=== PATIENT | female | born 1945 | race Caucasian/White ===

== ENCOUNTER 2016-09-18 16:41 | Emergency (ER) | payer MEDICARE, OTHER ==
[~2016-09-18] VITALS: Ht 149.9 cm; Wt 90.9 kg
[~2016-09-18 16:41] MED LIST: ADV250 IH; ALBU8HFA IH; AMLO5TAB66 PO; ASPI-1093 PO; CHOL2000 PO; DOCU250C28 PO; GABA-531 PO; INSU100V12 SQ; LORA-192 PO; METO-325 PO; MONT10TA21 PO; OMEP20CA10 PO; OXYB5TAB10 PO; PITA4TAB2 PO; SITA1TAB2 PO; SYMB8060 IH; VALS1TAB8 PO
[2016-09-18 16:57] LABS: GLUCOSE,POINT OF CARE 116 MG/DL (70-110)
[2016-09-18] MEDS ORDERED: METF500T4 PO (16:58)
[2016-09-18] MEDS ORDERED: NAPR375T6 PO (16:58)
[2016-09-18] MEDS ORDERED: NITR.4 SL (16:58)
[2016-09-18] MEDS ORDERED: ALBU8HFA4 IH (16:58)
[2016-09-18] MEDS ORDERED: PRAV40 PO (16:58)
[2016-09-18] MEDS ORDERED: SITA100 PO (16:58)
[2016-09-18] MEDS ORDERED: KETOROLAC TROMETHAMINE 30 MG/ML VIAL IM ONE (18:30)
[2016-09-18 19:30] VITALS: BP 132/78
== END 2016-09-18 20:00 | disposition home or self-care (01) ==
LOC: EMS 16:43
DX: M54.6 Pain in thoracic spine (principal); J45.909 Unspecified asthma, uncomplicated; J44.9 Chronic obstructive pulmonary disease, unspecified; E11.9 Type 2 diabetes mellitus without complications; K21.9 Gastro-esophageal reflux disease without esophagitis; I10 Essential (primary) hypertension; E78.00 Pure hypercholesterolemia, unspecified; F17.210 Nicotine dependence, cigarettes, uncomplicated; Z79.82 Long term (current) use of aspirin
CPT/HCPCS: 72072; 82962; 96372; 99284; J1885

== ENCOUNTER 2016-10-25 10:46 | Emergency (ER) | payer MEDICARE, OTHER ==
[~2016-10-25] VITALS: Ht 152.4 cm; Wt 90.0 kg
[~2016-10-25 10:46] MED LIST changes: +ALBU8HFA4 IH; +METF500T4 PO; +NAPR375T6 PO; +NITR.4 SL; +PRAV40 PO; +SITA100 PO
[2016-10-25] MEDS ORDERED: IBUPROFEN 600 MG TABLET PO ONE (11:00)
[2016-10-25 12:21] VITALS: BP 145/77
== END 2016-10-25 12:27 | disposition home or self-care (01) ==
LOC: EMS 10:47
DX: S83.92XA Sprain of unspecified site of left knee, initial encounter (principal); E11.9 Type 2 diabetes mellitus without complications; J44.9 Chronic obstructive pulmonary disease, unspecified; K21.9 Gastro-esophageal reflux disease without esophagitis; E78.00 Pure hypercholesterolemia, unspecified; I10 Essential (primary) hypertension; Z87.891 Personal history of nicotine dependence; Z79.82 Long term (current) use of aspirin; Z79.4 Long term (current) use of insulin; X58.XXXA Exposure to other specified factors, initial encounter; Y93.01 Activity, walking, marching and hiking; Y92.89 Other specified places as the place of occurrence of the external cause; Y99.8 Other external cause status
CPT/HCPCS: 82962; 99284

== ENCOUNTER 2017-05-07 21:25 | Emergency (ER) | payer MEDICARE, OTHER ==
[~2017-05-07] VITALS: Ht 165.1 cm; Wt 81.8 kg
[~2017-05-07 21:25] MED LIST changes: -ASPI-1093 PO; +ASPI81TA43 PO; -METO-325 PO; +METO-391 PO; -PRAV40 PO; +PRAV40TA4 PO; -SITA1TAB2 PO
[2017-05-07] MEDS ORDERED: OXYB5 PO (21:32)
[2017-05-07] MEDS ORDERED: GABA-531 PO (21:32)
[2017-05-07] MEDS ORDERED: METO50 PO (21:32)
[2017-05-07 21:59] LABS: BASOPHILS % (AUTO) 0.6 % (0.0-2.0); EOSINOPHILS % (AUTO) 2.4 % (1.0-6.0); HEMATOCRIT 41.3 % (36-46); HEMOGLOBIN 13.9 g/dL (12.0-16.0); LYMPHOCYTES # (AUTO) 3.3 K/uL (1.0-4.8); LYMPHOCYTES % (AUTO) 36.4 % (22.0-44.0); MEAN CORPUSCULAR HEMOGLOBIN 28.9 pg (26.0-34.0); MEAN CORPUSCULAR HGB CONC 33.7 G/dL (31.0-37.0); MEAN CORPUSCULAR VOLUME 86 fL (80-100); MONOCYTES # (AUTO) 0.8 K/uL (0.1-1.0); MONOCYTES % (AUTO) 9.1 % (2.0-9.0); NEUTROPHILS # (AUTO) 4.7 K/uL (1.8-7.7); NEUTROPHILS % (AUTO) 51.5 % (40.0-70.0); PLATELET COUNT (AUTO) 370 K/uL (150-450); RED BLOOD CELL COUNT(AUTO) 4.81 MIL/uL (4.00-5.20); RED CELL DISTRIBUTION WIDTH 14.1 % (11.5-14.5)
[2017-05-07 22:16] LABS: ANION GAP 8 mmol/L (8-16); CALCIUM, TOTAL 8.9 mg/dL (8.8-10.5); CARBON DIOXIDE 32 mmol/L (22-29); CHLORIDE 99 mmol/L (98-107); CREATININE 0.69 mg/dL (0.60-1.30); GLOMERULAR FILTR. RATE CALC > 60 mL/min (>60); GLUCOSE,RANDOM 104 mg/dL (70-110); POTASSIUM 3.4 mmol/L (3.5-5.1); PROTHROMBIN TIME 10.8 SEC (9.4-11.6); SODIUM SERUM 139 mmol/L (136-145); UREA NITROGEN, BLOOD 12 mg/dL (7-18)
[2017-05-07 22:22] LABS: ALANINE AMINOTRANSFERASE 43 U/L (12-78); ALBUMIN 3.7 g/dL (3.4-5.0); ALKALINE PHOSPHATASE 76 U/L (46-116); ASPARTATE AMINOTRANSFERASE 26 U/L (15-37); BILIRUBIN,TOTAL 0.4 mg/dL (0.1-1.0); TOTAL PROTEIN, SERUM 8.6 g/dL (6.4-8.2)
[2017-05-07 22:50] VITALS: BP 126/72
== END 2017-05-07 23:30 | disposition home or self-care (01) ==
LOC: EMS 21:35
DX: R07.89 Other chest pain (principal); J45.909 Unspecified asthma, uncomplicated; J44.9 Chronic obstructive pulmonary disease, unspecified; E11.9 Type 2 diabetes mellitus without complications; K21.9 Gastro-esophageal reflux disease without esophagitis; E78.00 Pure hypercholesterolemia, unspecified; I10 Essential (primary) hypertension; Z87.891 Personal history of nicotine dependence; Z79.82 Long term (current) use of aspirin
CPT/HCPCS: 93005; 99285

== ENCOUNTER 2017-06-27 14:03 | Emergency (ER) | payer MEDICARE, OTHER ==
[~2017-06-27] VITALS: Ht 149.9 cm; Wt 86.8 kg
[~2017-06-27 14:03] MED LIST changes: -ADV250 IH; -ALBU8HFA4 IH; -CHOL2000 PO; -DOCU250C28 PO; -INSU100V12 SQ; -LORA-192 PO; -METO-391 PO; +METO50 PO; +OXYB5 PO; -OXYB5TAB10 PO; -PITA4TAB2 PO; -SYMB8060 IH
[2017-06-27 14:27] LABS: GLUCOSE,POINT OF CARE 162 MG/DL (70-110)
[2017-06-27] MEDS ORDERED: KETOROLAC TROMETHAMINE 30 MG/ML VIAL IM ONE (15:45)
[2017-06-27 17:00] VITALS: BP 149/81
== END 2017-06-27 17:41 | disposition home or self-care (01) ==
LOC: EMS 14:04
DX: S39.012A Strain of muscle, fascia and tendon of lower back, initial encounter (principal); K21.9 Gastro-esophageal reflux disease without esophagitis; I10 Essential (primary) hypertension; E78.00 Pure hypercholesterolemia, unspecified; E11.9 Type 2 diabetes mellitus without complications; J44.9 Chronic obstructive pulmonary disease, unspecified; Z79.82 Long term (current) use of aspirin; Z87.891 Personal history of nicotine dependence; W01.0XXA Fall on same level from slipping, tripping and stumbling without subsequent striking against object, initial encounter; Y93.01 Activity, walking, marching and hiking; Y92.480 Sidewalk as the place of occurrence of the external cause; Y99.8 Other external cause status
CPT/HCPCS: 72110; 82962; 96372; 99284; J1885

== ENCOUNTER 2017-07-26 09:28 | Emergency (ER) | payer MEDICARE, OTHER ==
[~2017-07-26] VITALS: Ht 149.9 cm; Wt 86.2 kg
[2017-07-26 09:52] LABS: GLUCOSE,POINT OF CARE 111 MG/DL (70-110)
[2017-07-26 10:49] LABS: BASOPHILS % (AUTO) 0.5 % (0.0-2.0); EOSINOPHILS % (AUTO) 0.3 % (1.0-6.0); HEMATOCRIT 40.4 % (36-46); HEMOGLOBIN 13.6 g/dL (12.0-16.0); LYMPHOCYTES # (AUTO) 1.9 K/uL (1.0-4.8); LYMPHOCYTES % (AUTO) 13.8 % (22.0-44.0); MEAN CORPUSCULAR HEMOGLOBIN 28.5 pg (26.0-34.0); MEAN CORPUSCULAR HGB CONC 33.7 G/dL (31.0-37.0); MEAN CORPUSCULAR VOLUME 85 fL (80-100); MONOCYTES # (AUTO) 1.1 K/uL (0.1-1.0); MONOCYTES % (AUTO) 8.1 % (2.0-9.0); NEUTROPHILS # (AUTO) 10.7 K/uL (1.8-7.7); NEUTROPHILS % (AUTO) 77.3 % (40.0-70.0); PLATELET COUNT (AUTO) 307 K/uL (150-450); RED BLOOD CELL COUNT(AUTO) 4.77 MIL/uL (4.00-5.20); RED CELL DISTRIBUTION WIDTH 13.5 % (11.5-14.5)
[2017-07-26 11:06] LABS: ANION GAP 8 mmol/L (8-16); CALCIUM, TOTAL 8.6 mg/dL (8.8-10.5); CARBON DIOXIDE 32 mmol/L (22-29); CHLORIDE 95 mmol/L (98-107); CREATININE 0.83 mg/dL (0.60-1.30); GLOMERULAR FILTR. RATE CALC > 60 mL/min (>60); GLUCOSE,RANDOM 111 mg/dL (70-110); POTASSIUM 3.3 mmol/L (3.5-5.1); SODIUM SERUM 135 mmol/L (136-145); UREA NITROGEN, BLOOD 12 mg/dL (7-18)
[2017-07-26 11:12] LABS: ALANINE AMINOTRANSFERASE 31 U/L (12-78); ALBUMIN 3.6 g/dL (3.4-5.0); ALKALINE PHOSPHATASE 65 U/L (46-116); ASPARTATE AMINOTRANSFERASE 22 U/L (15-37); BILIRUBIN,TOTAL 0.5 mg/dL (0.1-1.0); TOTAL PROTEIN, SERUM 8.3 g/dL (6.4-8.2)
[2017-07-26] MEDS ORDERED: IPRATROPIUM BROMIDE 0.5 MG/2.5 ML NEB SOLUTION NEB ONE (11:15)
[2017-07-26] MEDS ORDERED: ALBUTEROL SULFATE 2.5 MG/0.5 ML NEB SOLUTION NEB ONE (11:15)
[2017-07-26] MEDS ORDERED: PredniSONE 20 MG TABLET PO ONE (11:15)
[2017-07-26] MEDS ORDERED: AZITHROMYCIN 250 MG TABLET PO ONE (11:15)
[2017-07-26 11:24] LABS: B-TYPE NATRIURETIC PEPTIDE 11 pg/mL (0-100)
[2017-07-26 13:09] VITALS: BP 127/82
== END 2017-07-26 13:14 | disposition home or self-care (01) ==
LOC: EMS 09:30
DX: J44.9 Chronic obstructive pulmonary disease, unspecified (principal); J45.901 Unspecified asthma with (acute) exacerbation; E11.9 Type 2 diabetes mellitus without complications; E78.00 Pure hypercholesterolemia, unspecified; I10 Essential (primary) hypertension; K21.9 Gastro-esophageal reflux disease without esophagitis; Z79.82 Long term (current) use of aspirin; Z87.891 Personal history of nicotine dependence
CPT/HCPCS: 36415; 71046; 80053; 82962; 83880; 84484; 85025; 93005; 94640; 99285; J7512

== ENCOUNTER → 2017-08-24 | Outpatient (CLI) | payer MEDICARE, OTHER ==
[~2017-08-24] VITALS: Ht 149.9 cm; Wt 86.5 kg
[~2017-08-24] MED LIST changes: +ALBU8.5H8 IH; +GUAIFDM PO; -METF500T4 PO; +METF500T6 PO; +[UNRECOGNIZED DRUG - CODE] PO
[2017-08-24 12:13] VITALS: BP 120/54
== END | disposition home or self-care (01) ==
LOC: SRCNTR 12:06
PROVIDERS: ATTEND Internal Medicine Critical Care Medicine
DX: J44.1 Chronic obstructive pulmonary disease with (acute) exacerbation (principal); E11.9 Type 2 diabetes mellitus without complications; I10 Essential (primary) hypertension; E78.5 Hyperlipidemia, unspecified
CPT/HCPCS: G0463

== ENCOUNTER → 2017-09-08 | Outpatient (CLI) | payer MEDICARE, OTHER ==
[~2017-09-08] MED LIST changes: -NAPR375T6 PO
== END | disposition home or self-care (01) ==
LOC: MSR 11:36
PROVIDERS: ATTEND Internal Medicine Critical Care Medicine
DX: J84.112 Idiopathic pulmonary fibrosis (principal); I70.90 Unspecified atherosclerosis
CPT/HCPCS: 71250; 94010; 94726; 94727; 94729

== ENCOUNTER → 2017-11-27 | Outpatient (CLI) | payer MEDICARE, OTHER ==
[~2017-11-27] VITALS: Ht 147.3 cm; Wt 85.5 kg
[2017-11-27 09:49] VITALS: BP 110/65
== END | disposition home or self-care (01) ==
LOC: SRCNTR 09:47
PROVIDERS: ATTEND Internal Medicine Cardiovascular Disease
DX: I11.9 Hypertensive heart disease without heart failure (principal); E11.9 Type 2 diabetes mellitus without complications; E66.01 Morbid (severe) obesity due to excess calories; E78.2 Mixed hyperlipidemia; E78.00 Pure hypercholesterolemia, unspecified; J44.1 Chronic obstructive pulmonary disease with (acute) exacerbation; F17.210 Nicotine dependence, cigarettes, uncomplicated; K21.9 Gastro-esophageal reflux disease without esophagitis
CPT/HCPCS: G0463

== ENCOUNTER → 2018-02-04 | Outpatient (CLI) | payer MEDICARE, OTHER ==
[~2018-02-04] VITALS: Ht 147.3 cm; Wt 83.2 kg
[~2018-02-04] MED LIST changes: +CHLO25TA3 PO; +IRBE150T51 PO; +METF-960 PO; -METF500T6 PO
[2018-02-04 11:42] VITALS: BP 126/64
== END | disposition home or self-care (01) ==
LOC: SRCNTR 11:14
PROVIDERS: ATTEND Internal Medicine Cardiovascular Disease
DX: I11.9 Hypertensive heart disease without heart failure (principal); E11.9 Type 2 diabetes mellitus without complications; E78.5 Hyperlipidemia, unspecified; E66.9 Obesity, unspecified; J98.4 Other disorders of lung
CPT/HCPCS: G0463

== ENCOUNTER → 2018-02-12 | Outpatient (CLI) | payer MEDICARE, OTHER ==
[~2018-02-12] VITALS: Ht 147.3 cm; Wt 83.2 kg
[2018-02-12 09:43] VITALS: BP 111/62
== END | disposition home or self-care (01) ==
LOC: SRCNTR 09:15
PROVIDERS: ATTEND Internal Medicine Cardiovascular Disease
DX: I49.9 Cardiac arrhythmia, unspecified (principal)
CPT/HCPCS: G0463

== ENCOUNTER → 2018-06-02 | Outpatient (CLI) | payer MEDICARE, OTHER ==
[~2018-06-02] VITALS: Ht 147.3 cm; Wt 84.5 kg
[~2018-06-02] MED LIST changes: +GABA800T9 PO; -VALS1TAB8 PO; +[UNRECOGNIZED DRUG - CODE] PO; -[UNRECOGNIZED DRUG - CODE] PO
[2018-06-02 10:14] VITALS: BP 131/56
== END | disposition home or self-care (01) ==
LOC: SRCNTR 09:50
PROVIDERS: ATTEND Internal Medicine Cardiovascular Disease
DX: I25.10 Atherosclerotic heart disease of native coronary artery without angina pectoris (principal); E11.9 Type 2 diabetes mellitus without complications; E78.5 Hyperlipidemia, unspecified; M19.90 Unspecified osteoarthritis, unspecified site; J44.9 Chronic obstructive pulmonary disease, unspecified
CPT/HCPCS: G0463

== ENCOUNTER → 2018-06-17 | Outpatient (CLI) | payer MEDICARE, OTHER ==
[~2018-06-17] MED LIST changes: -ALBU8.5H8 IH; -CHLO25TA3 PO; -GABA-531 PO; -GUAIFDM PO; -SITA100 PO
== END | disposition home or self-care (01) ==
LOC: RADPV 09:24
PROVIDERS: ATTEND Internal Medicine Cardiovascular Disease
DX: I08.1 Rheumatic disorders of both mitral and tricuspid valves (principal); I11.9 Hypertensive heart disease without heart failure; E11.9 Type 2 diabetes mellitus without complications; I25.10 Atherosclerotic heart disease of native coronary artery without angina pectoris
CPT/HCPCS: 93306

== ENCOUNTER → 2018-08-02 | Outpatient (CLI) | payer MEDICARE, OTHER ==
[~2018-08-02] VITALS: Ht 147.3 cm; Wt 83.0 kg
[~2018-08-02] MED LIST changes: +BECL10.62 IH; +LOSA100T58 PO
[2018-08-02 10:07] VITALS: BP 143/68
== END | disposition home or self-care (01) ==
LOC: SRCNTR 09:56
PROVIDERS: ATTEND Internal Medicine Cardiovascular Disease
DX: E11.9 Type 2 diabetes mellitus without complications (principal); I10 Essential (primary) hypertension; E78.5 Hyperlipidemia, unspecified; M19.90 Unspecified osteoarthritis, unspecified site; J45.909 Unspecified asthma, uncomplicated
CPT/HCPCS: G0463

== ENCOUNTER 2019-04-13 15:57 | Emergency (ER) | payer MEDICARE, OTHER ==
[~2019-04-13] VITALS: Ht 149.9 cm; Wt 86.0 kg
[~2019-04-13 15:57] MED LIST changes: +ACET500T94 PO; -IRBE150T51 PO; -NITR.4 SL; +NITR0.4T52 SL; -OMEP20CA10 PO; +OMEP20CA12 PO; -[UNRECOGNIZED DRUG - CODE] PO
[2019-04-13] MEDS ORDERED: LIDOCAINE 5% TRANSDERMAL PATCH TD ONE (18:00)
[2019-04-13] MEDS ORDERED: IBUPROFEN 400 MG TABLET PO ONE (18:00)
[2019-04-13 18:31] LABS: GLUCOSE,POINT OF CARE 95 MG/DL (70-110)
[2019-04-13 18:40] VITALS: BP 155/87
== END 2019-04-13 19:02 | disposition home or self-care (01) ==
LOC: EMS 16:02
DX: S39.012A Strain of muscle, fascia and tendon of lower back, initial encounter (principal); F17.210 Nicotine dependence, cigarettes, uncomplicated; J45.909 Unspecified asthma, uncomplicated; E11.9 Type 2 diabetes mellitus without complications; K21.9 Gastro-esophageal reflux disease without esophagitis; E78.00 Pure hypercholesterolemia, unspecified; I10 Essential (primary) hypertension; Z79.84 Long term (current) use of oral hypoglycemic drugs; X58.XXXA Exposure to other specified factors, initial encounter; Y93.89 Activity, other specified; Y92.89 Other specified places as the place of occurrence of the external cause; Y99.8 Other external cause status
CPT/HCPCS: 99406

== ENCOUNTER 2020-04-24 17:49 | Emergency (ER) | payer MEDICARE, OTHER ==
[~2020-04-24] VITALS: Ht 154.9 cm; Wt 75.0 kg
[~2020-04-24 17:49] MED LIST changes: +MONT-35 PO; -MONT10TA21 PO
[2020-04-24 19:45] VITALS: BP 172/98
[2020-04-24 20:35] LABS: COVID AG,FIA SOURCE NASOPHARYNGEAL
== END 2020-04-24 20:22 | disposition home or self-care (01) ==
LOC: EMS 17:56
DX: R05 Cough (principal); J44.9 Chronic obstructive pulmonary disease, unspecified; E11.9 Type 2 diabetes mellitus without complications; E78.00 Pure hypercholesterolemia, unspecified; I10 Essential (primary) hypertension; Z20.828 Contact with and (suspected) exposure to other viral communicable diseases; Z79.899 Other long term (current) drug therapy
CPT/HCPCS: 71045; 87426; 99284; C9803

== ENCOUNTER → 2020-07-23 | Outpatient (CLI) | payer MEDICARE, OTHER ==
[~2020-07-23] VITALS: Ht 147.3 cm; Wt 84.4 kg
[2020-07-23 10:35] VITALS: BP 122/61
== END | disposition home or self-care (01) ==
LOC: SRCNTR 10:04
PROVIDERS: ATTEND Internal Medicine Cardiovascular Disease
DX: I10 Essential (primary) hypertension (principal); E11.9 Type 2 diabetes mellitus without complications; E78.5 Hyperlipidemia, unspecified; J44.9 Chronic obstructive pulmonary disease, unspecified; M19.90 Unspecified osteoarthritis, unspecified site; R07.89 Other chest pain
CPT/HCPCS: 93005; G0463

== ENCOUNTER → 2020-07-25 | Outpatient (CLI) | payer MEDICARE, OTHER ==
[2020-07-25 10:40] LABS: BASOPHILS % (AUTO) 0.8 % (0.0-2.0); HEMATOCRIT 41.5 % (36-46); HEMOGLOBIN 13.8 g/dL (12.0-16.0); LYMPHOCYTES # (AUTO) 2.2 K/uL (1.0-4.8); LYMPHOCYTES % (AUTO) 40.1 % (22.0-44.0); MEAN CORPUSCULAR HGB CONC 33.3 G/dL (31.0-37.0); MEAN CORPUSCULAR VOLUME 90 fL (80-100); MONOCYTES # (AUTO) 0.5 K/uL (0.1-1.0); MONOCYTES % (AUTO) 8.8 % (2.0-9.0); NEUTROPHILS # (AUTO) 2.5 K/uL (1.8-7.7); NEUTROPHILS % (AUTO) 46.3 % (40.0-70.0); PLATELET COUNT (AUTO) 265 K/uL (150-450)
[2020-07-25 10:52] LABS: ALANINE AMINOTRANSFERASE 22 U/L (12-78); ALBUMIN 3.6 g/dL (3.4-5.0); ALKALINE PHOSPHATASE 68 U/L (46-116); ANION GAP 9 mmol/L (8-16); ASPARTATE AMINOTRANSFERASE 16 U/L (15-37); BILIRUBIN,TOTAL 0.3 mg/dL (0.1-1.0); CALCIUM, TOTAL 8.8 mg/dL (8.8-10.5); CARBON DIOXIDE 30 mmol/L (22-29); CHLORIDE 104 mmol/L (98-107); CHOL/HDL RATIO 3.3 (3.9-5.7); CHOLESTEROL 159 mg/dL (131-200); CREATININE 0.58 mg/dL (0.60-1.30); GLOMERULAR FILTR. RATE CALC > 60 mL/min (>60); GLUCOSE,RANDOM 111 mg/dL (70-110); HDL CHOLESTEROL 48 mg/dL (40-60); LDL CHOL (CALC.) 84 mg/dL (0-130); POTASSIUM 4.1 mmol/L (3.5-5.1); SODIUM SERUM 143 mmol/L (136-145); TOTAL PROTEIN, SERUM 7.8 g/dL (6.4-8.2); TRIGLYCERIDES 133 mg/dL (15-150); UREA NITROGEN, BLOOD 11 mg/dL (7-18)
[2020-07-25 10:59] LABS: HEMOGLOBIN A1C 6.3 % (3.8-5.6)
== END | disposition home or self-care (01) ==
LOC: LABPV 09:17
PROVIDERS: ATTEND Internal Medicine Cardiovascular Disease
DX: I25.10 Atherosclerotic heart disease of native coronary artery without angina pectoris (principal); I10 Essential (primary) hypertension; E11.9 Type 2 diabetes mellitus without complications
CPT/HCPCS: 83036

== ENCOUNTER → 2020-07-31 | Outpatient (CLI) | payer MEDICARE, OTHER ==
[~2020-07-31] MED LIST changes: +REGADENOSON 0.4 MG/5 ML PF SYRINGE IVP ONE; +SESTAMIBI TC99M/UD ISOTOPE 1 EA INJ INJ ONE
[2020-07-31 08:35] VITALS: BP 138/76
[2020-07-31 09:27] VITALS: BP 129/68
== END | disposition home or self-care (01) ==
LOC: CARDMN 08:17
PROVIDERS: ATTEND Internal Medicine Cardiovascular Disease
DX: I50.1 Left ventricular failure, unspecified (principal); I20.9 Angina pectoris, unspecified
CPT/HCPCS: 78452; 93017; 93306; A9500

== ENCOUNTER → 2020-08-06 | Outpatient (CLI) | payer MEDICARE, OTHER ==
[~2020-08-06] VITALS: Ht 147.3 cm; Wt 84.5 kg
[~2020-08-06] MED LIST changes: -REGADENOSON 0.4 MG/5 ML PF SYRINGE IVP ONE; -SESTAMIBI TC99M/UD ISOTOPE 1 EA INJ INJ ONE
[2020-08-06 09:53] VITALS: BP 121/57
== END | disposition home or self-care (01) ==
LOC: SRCNTR 09:27
PROVIDERS: ATTEND Internal Medicine Cardiovascular Disease
DX: I10 Essential (primary) hypertension (principal); E11.9 Type 2 diabetes mellitus without complications; E78.5 Hyperlipidemia, unspecified; M19.90 Unspecified osteoarthritis, unspecified site; J44.9 Chronic obstructive pulmonary disease, unspecified
CPT/HCPCS: G0463

== ENCOUNTER 2020-11-14 14:41 | Emergency (ER) | payer MEDICARE, OTHER ==
[~2020-11-14] VITALS: Ht 152.4 cm; Wt 79.5 kg
[~2020-11-14 14:41] MED LIST changes: +TICA90TA PO
[2020-11-14] MEDS ORDERED: PERTUSS(ACELL),DIPH,TET VAC/PF 0.5 ML SYRINGE IM. ONE (15:00)
[2020-11-14] MEDS ORDERED: ACETAMINOPHEN 500 MG TABLET PO ONE (15:00)
[2020-11-14 18:00] VITALS: BP 140/77
== END 2020-11-14 19:44 | disposition home or self-care (01) ==
LOC: EMS 15:01
DX: S01.01XA Laceration without foreign body of scalp, initial encounter (principal); J45.909 Unspecified asthma, uncomplicated; J44.9 Chronic obstructive pulmonary disease, unspecified; E11.9 Type 2 diabetes mellitus without complications; K21.9 Gastro-esophageal reflux disease without esophagitis; E78.00 Pure hypercholesterolemia, unspecified; I10 Essential (primary) hypertension; F17.210 Nicotine dependence, cigarettes, uncomplicated; Z79.82 Long term (current) use of aspirin; Z79.84 Long term (current) use of oral hypoglycemic drugs; W22.8XXA Striking against or struck by other objects, initial encounter; Y93.89 Activity, other specified; Y92.89 Other specified places as the place of occurrence of the external cause; Y99.8 Other external cause status
CPT/HCPCS: 12001; 70450; 90471; 90715; 99284

== ENCOUNTER 2020-11-21 07:14 | Emergency (ER) | payer MEDICARE, OTHER ==
[~2020-11-21] VITALS: Ht 160 cm; Wt 79.5 kg
[2020-11-21 07:20] VITALS: BP 159/68
== END 2020-11-21 07:17 | disposition home or self-care (01) ==
LOC: EMS 07:16
DX: M25.552 Pain in left hip (principal); G89.29 Other chronic pain; J45.909 Unspecified asthma, uncomplicated; E11.9 Type 2 diabetes mellitus without complications; K21.9 Gastro-esophageal reflux disease without esophagitis; E78.00 Pure hypercholesterolemia, unspecified; I10 Essential (primary) hypertension; F17.210 Nicotine dependence, cigarettes, uncomplicated; Z48.02 Encounter for removal of sutures; Z79.82 Long term (current) use of aspirin; Z79.84 Long term (current) use of oral hypoglycemic drugs
CPT/HCPCS: 99281; Z7502

== ENCOUNTER → 2020-12-28 | Outpatient (CLI) | payer MEDICARE, OTHER ==
[~2020-12-28] VITALS: Ht 147.3 cm; Wt 82.7 kg
[~2020-12-28] MED LIST changes: -OXYB5 PO; +OXYB5TAB20 PO
[2020-12-28 10:08] VITALS: BP 128/67
== END | disposition home or self-care (01) ==
LOC: SRCNTR 09:59
PROVIDERS: ATTEND Internal Medicine Cardiovascular Disease
DX: I10 Essential (primary) hypertension (principal); E11.9 Type 2 diabetes mellitus without complications; J44.9 Chronic obstructive pulmonary disease, unspecified; I25.10 Atherosclerotic heart disease of native coronary artery without angina pectoris; E78.5 Hyperlipidemia, unspecified; M19.90 Unspecified osteoarthritis, unspecified site; E66.9 Obesity, unspecified; Z95.5 Presence of coronary angioplasty implant and graft
CPT/HCPCS: G0463; Z7500

== ENCOUNTER → 2021-06-04 | Outpatient (CLI) | payer MEDICARE, OTHER ==
[~2021-06-04] MED LIST changes: +METF-1211 PO; -METF-960 PO
== END | disposition home or self-care (01) ==
LOC: LABMN 09:38
PROVIDERS: ATTEND Internal Medicine
DX: R05.9 Cough, unspecified (principal); I70.0 Atherosclerosis of aorta; M51.34 Other intervertebral disc degeneration, thoracic region
CPT/HCPCS: 71046

== ENCOUNTER → 2021-06-17 | Outpatient (CLI) | payer MEDICARE, OTHER ==
[~2021-06-17] VITALS: Ht 147.3 cm; Wt 81.8 kg
[2021-06-17 11:34] VITALS: BP 134/57
== END | disposition home or self-care (01) ==
LOC: SRCNTR 11:29
PROVIDERS: ATTEND Internal Medicine Cardiovascular Disease
DX: R94.31 Abnormal electrocardiogram [ECG] [EKG] (principal); I10 Essential (primary) hypertension; E78.5 Hyperlipidemia, unspecified; J44.9 Chronic obstructive pulmonary disease, unspecified; E11.9 Type 2 diabetes mellitus without complications; I25.10 Atherosclerotic heart disease of native coronary artery without angina pectoris; M19.90 Unspecified osteoarthritis, unspecified site
CPT/HCPCS: 93005; G0463

== ENCOUNTER → 2021-07-19 | Outpatient (CLI) | payer MEDICARE, MEDICAID ==
[~2021-07-19] MED LIST changes: +REGADENOSON 0.4 MG/5 ML PF SYRINGE IVP ONE
[2021-07-19 17:26] VITALS: BP 139/79
[2021-07-19 17:32] VITALS: BP 128/86
== END | disposition home or self-care (01) ==
LOC: CARDMN 08:03
PROVIDERS: ATTEND Internal Medicine Cardiovascular Disease
DX: I25.9 Chronic ischemic heart disease, unspecified (principal); I50.1 Left ventricular failure, unspecified
CPT/HCPCS: 78452; 93017; 93306; J2785

== ENCOUNTER → 2021-07-22 | Outpatient (CLI) | payer MEDICARE, OTHER ==
[~2021-07-22] VITALS: Ht 147.3 cm; Wt 80.0 kg
[~2021-07-22] MED LIST changes: -REGADENOSON 0.4 MG/5 ML PF SYRINGE IVP ONE
[2021-07-22 10:23] VITALS: BP 125/57
== END | disposition home or self-care (01) ==
LOC: SRCNTR 09:55
PROVIDERS: ATTEND Internal Medicine Cardiovascular Disease
DX: I10 Essential (primary) hypertension (principal); E78.5 Hyperlipidemia, unspecified; E11.9 Type 2 diabetes mellitus without complications; M19.90 Unspecified osteoarthritis, unspecified site; J44.9 Chronic obstructive pulmonary disease, unspecified; E66.9 Obesity, unspecified; I25.10 Atherosclerotic heart disease of native coronary artery without angina pectoris; Z95.5 Presence of coronary angioplasty implant and graft
CPT/HCPCS: G0463

== ENCOUNTER 2021-10-31 19:44 | Emergency (ER) | payer MEDICARE, OTHER ==
[~2021-10-31] VITALS: Ht 152.4 cm; Wt 81.8 kg
[2021-10-31] MEDS ORDERED: KETOROLAC TROMETHAMINE 30 MG/ML VIAL IVP ONE (21:00)
[2021-10-31] MEDS ORDERED: ACETAMINOPHEN 500 MG TABLET PO ONE (21:00)
[2021-10-31] MEDS ORDERED: DEXAMETHASONE 4 MG TABLET PO ONE (21:00)
[2021-10-31] MEDS ORDERED: DiphenhydrAMINE HCL 50 MG/ML VIAL IVP ONE (21:00)
[2021-10-31] MEDS ORDERED: METOCLOPRAMIDE HCL 5 MG/ML 2 ML VIAL IVP ONE (21:00)
[2021-10-31] MEDS ORDERED: SODIUM CHLORIDE 0.9% 1,000 ML IV ONE (21:15)
[2021-10-31 21:44] LABS: COVID AG,FIA SOURCE NASOPHARYNGEAL
[2021-10-31] MEDS ORDERED: ONDA-104 PO (22:22)
[2021-10-31 23:15] VITALS: BP 138/81
[2021-11-02] MEDS ORDERED: ONDA4TAB96 PO (13:49)
== END 2021-10-31 23:16 | disposition home or self-care (01) ==
LOC: EMS 19:50
DX: U07.1 COVID-19 (principal); G43.009 Migraine without aura, not intractable, without status migrainosus; M19.90 Unspecified osteoarthritis, unspecified site; J45.909 Unspecified asthma, uncomplicated; J44.9 Chronic obstructive pulmonary disease, unspecified; E11.9 Type 2 diabetes mellitus without complications; E78.00 Pure hypercholesterolemia, unspecified; I10 Essential (primary) hypertension; Z87.19 Personal history of other diseases of the digestive system; Z87.448 Personal history of other diseases of urinary system; Z98.890 Other specified postprocedural states
CPT/HCPCS: 99284; 96374; 70450; 96375; 96361; 87426; J8540; J1200; J1885; J2765; J7030

== ENCOUNTER 2021-11-04 12:10 | Emergency (ER) | payer MEDICARE, OTHER ==
[~2021-11-04] VITALS: Ht 154.9 cm; Wt 89.1 kg
[~2021-11-04 12:10] MED LIST changes: +ONDA-104 PO; +ONDA4TAB96 PO
[2021-11-04] MEDS ORDERED: SODIUM CHLORIDE 0.9% 500 ML IV ONE (14:15)
[2021-11-04 14:26] LABS: BASOPHILS % (AUTO) 0.7 % (0.0-2.0); EOSINOPHILS % (AUTO) 1.9 % (1.0-6.0); HEMATOCRIT 41.4 % (36-46); HEMOGLOBIN 13.8 g/dL (12.0-16.0); LYMPHOCYTES # (AUTO) 1.9 K/uL (1.0-4.8); LYMPHOCYTES % (AUTO) 34.2 % (22.0-44.0); MEAN CORPUSCULAR HEMOGLOBIN 29.4 pg (26.0-34.0); MEAN CORPUSCULAR HGB CONC 33.3 G/dL (31.0-37.0); MEAN CORPUSCULAR VOLUME 88 fL (80-100); MONOCYTES # (AUTO) 0.6 K/uL (0.1-1.0); MONOCYTES % (AUTO) 11.6 % (2.0-9.0); NEUTROPHILS # (AUTO) 2.8 K/uL (1.8-7.7); NEUTROPHILS % (AUTO) 51.6 % (40.0-70.0); PLATELET COUNT (AUTO) 272 K/uL (150-450); RED CELL DISTRIBUTION WIDTH 13.4 % (11.5-14.5)
[2021-11-04 14:48] LABS: ANION GAP 9 mmol/L (8-16); CALCIUM, TOTAL 8.5 mg/dL (8.8-10.5); CARBON DIOXIDE 28 mmol/L (22-29); CHLORIDE 101 mmol/L (98-107); CREATININE 0.58 mg/dL (0.60-1.30); GLUCOSE,RANDOM 88 mg/dL (70-110); POTASSIUM 3.5 mmol/L (3.5-5.1); SODIUM SERUM 138 mmol/L (136-145); UREA NITROGEN, BLOOD 8 mg/dL (7-18)
[2021-11-04 14:49] LABS: GLOMERULAR FILTR. RATE CALC > 60 mL/min (>60)
[2021-11-04 14:54] LABS: ALANINE AMINOTRANSFERASE 43 U/L (12-78); ALBUMIN 3.6 g/dL (3.4-5.0); ALKALINE PHOSPHATASE 61 U/L (46-116); ASPARTATE AMINOTRANSFERASE 35 U/L (15-37); BILIRUBIN,TOTAL 0.3 mg/dL (0.1-1.0); TOTAL PROTEIN, SERUM 7.7 g/dL (6.4-8.2)
[2021-11-04] MEDS ORDERED: METO-391 PO (14:56)
[2021-11-04] MEDS ORDERED: OXYB-34 PO (14:56)
[2021-11-04] MEDS ORDERED: CHOL25TA4 PO (14:56)
[2021-11-04] MEDS ORDERED: ALBU8HFA IH (14:58)
[2021-11-04 15:36] VITALS: BP 122/78
[2021-11-04 15:47] LABS: APPEARANCE,URINE HAZY (CLEAR); BILIRUBIN,URINE NEGATIVE (NEGATIVE); GLUCOSE, URINE (UA) NEGATIVE (NEGATIVE); KETONES,URINE TRACE mg/dL (NEGATIVE); LEUKOCYTE ESTERASE ,URINE SMALL (NEGATIVE); OCCULT BLOOD,URINE NEGATIVE (NEGATIVE); PROTEIN,URINE NEGATIVE (NEGATIVE); SPECIFIC GRAVITIY, URINE 1.009 (1.003-1.030); UROBILINOGEN,URINE <=1.0 mg/dL (<=1.0)
[2021-11-04 16:01] LABS: BACTERIA,URINE Many /HPF (None Seen); NITRATE,URINE POSITIVE (NEGATIVE)
[2021-11-04 16:02] LABS: RBC,URINE None Seen /HPF (0-2); SQUAMOUS EPITHELIAL CELL,UR Few /LPF (None Seen)
[2021-11-04] MEDS ORDERED: CEPH-558 PO (16:13)
[2021-11-04] MEDS ORDERED: HYDROCODONE/ACETAMINOPHEN 5-325 MG TABLET PO ONE (16:30)
== END 2021-11-04 16:35 | disposition home or self-care (01) ==
LOC: EMS 12:19
DX: N39.0 Urinary tract infection, site not specified (principal); M54.50 Low back pain, unspecified; J45.909 Unspecified asthma, uncomplicated; M19.90 Unspecified osteoarthritis, unspecified site; J44.9 Chronic obstructive pulmonary disease, unspecified; E11.9 Type 2 diabetes mellitus without complications; E78.00 Pure hypercholesterolemia, unspecified; I10 Essential (primary) hypertension; Z87.19 Personal history of other diseases of the digestive system; Z87.448 Personal history of other diseases of urinary system; Z98.890 Other specified postprocedural states; Z86.16 Personal history of COVID-19
CPT/HCPCS: 99284; 71046; 80053; 81001; 82962; 85025; 36415; 87086; 74019; J7040

== ENCOUNTER 2022-02-21 08:21 | Emergency (ER) | payer MEDICARE, OTHER ==
[~2022-02-21] VITALS: Ht 149.9 cm; Wt 76.4 kg
[~2022-02-21 08:21] MED LIST changes: -ACET500T94 PO; +CEPH-558 PO; +CHOL25TA4 PO; +METO-391 PO; -METO50 PO; -ONDA-104 PO; +OXYB-34 PO; -OXYB5TAB20 PO
[2022-02-21 08:27] VITALS: BP 142/67
== END 2022-02-21 10:13 | disposition home or self-care (01) ==
LOC: EMS 08:35
DX: M54.31 Sciatica, right side (principal); E11.9 Type 2 diabetes mellitus without complications; E78.00 Pure hypercholesterolemia, unspecified; I10 Essential (primary) hypertension; J44.9 Chronic obstructive pulmonary disease, unspecified; J45.909 Unspecified asthma, uncomplicated; M19.90 Unspecified osteoarthritis, unspecified site; K21.9 Gastro-esophageal reflux disease without esophagitis; K59.00 Constipation, unspecified
CPT/HCPCS: 72100; 73502; 99284

== ENCOUNTER → 2022-05-14 | Outpatient (CLI) | payer MEDICARE, OTHER ==
[~2022-05-14] VITALS: Ht 147.3 cm; Wt 78.5 kg
[~2022-05-14] MED LIST changes: -BECL10.62 IH; -CEPH-558 PO; -ONDA4TAB96 PO; -PRAV40TA4 PO
[2022-05-14 11:01] VITALS: BP 144/68
== END | disposition home or self-care (01) ==
LOC: SRCNTR 09:53
PROVIDERS: ATTEND Internal Medicine Cardiovascular Disease
DX: Z09 Encounter for follow-up examination after completed treatment for conditions other than malignant neoplasm (principal); I25.10 Atherosclerotic heart disease of native coronary artery without angina pectoris; I10 Essential (primary) hypertension; E11.9 Type 2 diabetes mellitus without complications; E78.5 Hyperlipidemia, unspecified; J44.9 Chronic obstructive pulmonary disease, unspecified; M19.90 Unspecified osteoarthritis, unspecified site; Z95.5 Presence of coronary angioplasty implant and graft
CPT/HCPCS: G0463; Z7500

== ENCOUNTER → 2022-07-18 | Outpatient (CLI) | payer MEDICARE, OTHER ==
[~2022-07-18] VITALS: Ht 147.3 cm; Wt 80.0 kg
[~2022-07-18] MED LIST changes: +ALBU18HF12 IH; -ALBU8HFA IH; +ATOR40TA28 PO
[2022-07-18 10:06] VITALS: BP 122/60
== END | disposition home or self-care (01) ==
LOC: SRCNTR 09:40
PROVIDERS: ATTEND Internal Medicine Cardiovascular Disease
DX: I25.10 Atherosclerotic heart disease of native coronary artery without angina pectoris (principal); I10 Essential (primary) hypertension; E11.9 Type 2 diabetes mellitus without complications; E78.5 Hyperlipidemia, unspecified; M19.90 Unspecified osteoarthritis, unspecified site; J44.9 Chronic obstructive pulmonary disease, unspecified; Z95.5 Presence of coronary angioplasty implant and graft; Z79.82 Long term (current) use of aspirin; Z79.899 Other long term (current) drug therapy
CPT/HCPCS: G0463; Z7500

== ENCOUNTER → 2022-09-24 | Outpatient (CLI) | payer MEDICARE, OTHER ==
[~2022-09-24] VITALS: Ht 147.3 cm; Wt 79.0 kg
[~2022-09-24] MED LIST changes: -LOSA100T58 PO; +LOSA100T59 PO; -TICA90TA PO
[2022-09-24 09:46] VITALS: BP 134/71
== END | disposition home or self-care (01) ==
LOC: SRCNTR 09:21
PROVIDERS: ATTEND Internal Medicine Cardiovascular Disease
DX: Z09 Encounter for follow-up examination after completed treatment for conditions other than malignant neoplasm (principal); I25.10 Atherosclerotic heart disease of native coronary artery without angina pectoris; I10 Essential (primary) hypertension; E11.9 Type 2 diabetes mellitus without complications; E78.5 Hyperlipidemia, unspecified; J44.9 Chronic obstructive pulmonary disease, unspecified; M19.90 Unspecified osteoarthritis, unspecified site
CPT/HCPCS: G0463; Z7500

== ENCOUNTER → 2022-11-10 | Outpatient (CLI) | payer MEDICARE, OTHER | END | disposition home or self-care (01) | LOC: RADPV 08:39 | PROVIDERS: ATTEND Internal Medicine | DX: I51.89 Other ill-defined heart diseases (principal); R60.0 Localized edema | CPT/HCPCS: 93306 ==

== ENCOUNTER → 2022-11-26 | Outpatient (CLI) | payer MEDICARE, OTHER ==
[~2022-11-26] VITALS: Ht 147.3 cm; Wt 80.0 kg
[2022-11-26 10:17] VITALS: BP 136/57; PULSE 74; RESP 20; TEMP 98.5; O2SAT 98
== END | disposition home or self-care (01) ==
LOC: SRCNTR 09:44
PROVIDERS: ATTEND Internal Medicine Cardiovascular Disease
DX: Z09 Encounter for follow-up examination after completed treatment for conditions other than malignant neoplasm (principal); I25.10 Atherosclerotic heart disease of native coronary artery without angina pectoris; I10 Essential (primary) hypertension; E11.9 Type 2 diabetes mellitus without complications; E78.5 Hyperlipidemia, unspecified; J44.9 Chronic obstructive pulmonary disease, unspecified; M19.90 Unspecified osteoarthritis, unspecified site
CPT/HCPCS: G0463; Z7500

== ENCOUNTER → 2023-02-09 | Outpatient (CLI) | payer MEDICARE, OTHER ==
[~2023-02-09] VITALS: Ht 147.3 cm; Wt 80.0 kg
[~2023-02-09] MED LIST changes: -AMLO5TAB66 PO
[2023-02-09 09:45] VITALS: BP 130/70; PULSE 82; RESP 16; TEMP 98.2; O2SAT 98
== END | disposition home or self-care (01) ==
LOC: SRCNTR 09:23
PROVIDERS: ATTEND Internal Medicine Cardiovascular Disease
DX: I10 Essential (primary) hypertension (principal); J44.9 Chronic obstructive pulmonary disease, unspecified; I25.10 Atherosclerotic heart disease of native coronary artery without angina pectoris; M19.90 Unspecified osteoarthritis, unspecified site; E11.9 Type 2 diabetes mellitus without complications; E78.5 Hyperlipidemia, unspecified; Z79.82 Long term (current) use of aspirin; Z79.899 Other long term (current) drug therapy
CPT/HCPCS: G0463

== ENCOUNTER → 2023-05-11 | Outpatient (CLI) | payer MEDICARE, OTHER ==
[~2023-05-11] VITALS: Ht 147.3 cm; Wt 77.0 kg
[~2023-05-11] MED LIST changes: +AMLO-257 PO; +SEMA0.258 SQ
[2023-05-11 10:01] VITALS: BP 133/75; PULSE 78; RESP 16; TEMP 98.2; O2SAT 98
== END | disposition home or self-care (01) ==
LOC: SRCNTR 09:33
PROVIDERS: ATTEND Internal Medicine Cardiovascular Disease
DX: I10 Essential (primary) hypertension (principal); J44.9 Chronic obstructive pulmonary disease, unspecified; I25.10 Atherosclerotic heart disease of native coronary artery without angina pectoris; M19.90 Unspecified osteoarthritis, unspecified site; E11.9 Type 2 diabetes mellitus without complications; E78.5 Hyperlipidemia, unspecified
CPT/HCPCS: G0463; Z7500

== ENCOUNTER → 2023-07-27 | Outpatient (CLI) | payer MEDICARE, OTHER ==
[~2023-07-27] VITALS: Ht 147.3 cm; Wt 76.0 kg
[~2023-07-27] MED LIST changes: -LOSA100T59 PO
[2023-07-27 09:56] VITALS: BP 128/68; PULSE 76; RESP 16; TEMP 98.3; O2SAT 97
== END | disposition home or self-care (01) ==
LOC: SRCNTR 09:40
PROVIDERS: ATTEND Internal Medicine Cardiovascular Disease
DX: I10 Essential (primary) hypertension (principal); J44.9 Chronic obstructive pulmonary disease, unspecified; I25.10 Atherosclerotic heart disease of native coronary artery without angina pectoris; E11.9 Type 2 diabetes mellitus without complications; E78.5 Hyperlipidemia, unspecified; M19.90 Unspecified osteoarthritis, unspecified site; Z79.899 Other long term (current) drug therapy
CPT/HCPCS: G0463; Z7500

== ENCOUNTER 2024-03-05 10:20 | Emergency (ER) | payer MEDICARE, OTHER ==
[~2024-03-05] VITALS: Ht 152.4 cm; Wt 77.3 kg
[~2024-03-05 10:20] MED LIST changes: +GABA-1554 PO; -GABA800T9 PO
[2024-03-05 10:22] VITALS: TEMP 97.9
[2024-03-05] MEDS ORDERED: VIBE75TA PO (10:30)
[2024-03-05 10:46] LABS: GLUCOMETER DEV NAME(LOC) ER.7; GLUCOSE,POINT OF CARE 95 MG/DL (70-110)
[2024-03-05 11:44] LABS: BASOPHILS % (AUTO) 0.7 % (0.0-2.0); EOSINOPHILS % (AUTO) 0.6 % (1.0-6.0); HEMATOCRIT 43.6 % (36-46); HEMOGLOBIN 14.5 g/dL (12.0-16.0); LYMPHOCYTES # (AUTO) 2.1 K/uL (1.0-4.8); LYMPHOCYTES % (AUTO) 29.2 % (22.0-44.0); MEAN CORPUSCULAR HEMOGLOBIN 30.5 pg (26.0-34.0); MEAN CORPUSCULAR HGB CONC 33.3 G/dL (31.0-37.0); MEAN CORPUSCULAR VOLUME 92 fL (80-100); MONOCYTES # (AUTO) 0.6 K/uL (0.1-1.0); MONOCYTES % (AUTO) 7.8 % (2.0-9.0); NEUTROPHILS # (AUTO) 4.4 K/uL (1.8-7.7); NEUTROPHILS % (AUTO) 61.7 % (40.0-70.0); PLATELET COUNT (AUTO) 312 K/uL (150-450); RED BLOOD CELL COUNT(AUTO) 4.75 MIL/uL (4.00-5.20); RED CELL DISTRIBUTION WIDTH 13.2 % (11.5-14.5); WHITE BLOOD COUNT (AUTO) 7.1 K/uL (4.5-11.0)
[2024-03-05 11:53] LABS: ANION GAP 13 mmol/L (8-16); CALCIUM, TOTAL 8.8 mg/dL (8.8-10.5); CARBON DIOXIDE 28 mmol/L (22-29); CHLORIDE 97 mmol/L (98-107); CREATININE 0.59 mg/dL (0.60-1.30); GLOMERULAR FILTR. RATE CALC > 60 mL/min (>60); GLUCOSE,RANDOM 91 mg/dL (70-110); POTASSIUM 3.4 mmol/L (3.5-5.1); SODIUM SERUM 138 mmol/L (136-145); UREA NITROGEN, BLOOD 14 mg/dL (7-18)
[2024-03-05 12:00] LABS: ALANINE AMINOTRANSFERASE 19 U/L (12-78); ALBUMIN 3.9 g/dL (3.4-5.0); ALKALINE PHOSPHATASE 77 U/L (46-116); ASPARTATE AMINOTRANSFERASE 18 U/L (15-37); BILIRUBIN,TOTAL 0.7 mg/dL (0.1-1.0); LIPASE 45 U/L (16-77)
[2024-03-05 12:01] LABS: TROPONIN I-HIGH SENSITIVITY 13 ng/L (<51)
[2024-03-05 12:06] LABS: LACTIC ACID 1.2 mmol/L (0.4-2.0)
[2024-03-05] MEDS ORDERED: ONDA-104 PO (14:12)
[2024-03-05] MEDS ORDERED: OMEP20CA12 PO (14:12)
[2024-03-05] MEDS ORDERED: POLY119P3 PO (14:19)
[2024-03-05 14:39] VITALS: BP 155/90; PULSE 98; RESP 16; O2SAT 98
== END 2024-03-05 14:40 | disposition home or self-care (01) ==
LOC: EMS 10:24
DX: K29.70 Gastritis, unspecified, without bleeding (principal); I20.89 Other forms of angina pectoris; K59.00 Constipation, unspecified; R10.13 Epigastric pain; I10 Essential (primary) hypertension; E11.9 Type 2 diabetes mellitus without complications; E78.00 Pure hypercholesterolemia, unspecified; J45.909 Unspecified asthma, uncomplicated; K21.9 Gastro-esophageal reflux disease without esophagitis; Z79.82 Long term (current) use of aspirin; Z79.85 Long-term (current) use of injectable non-insulin antidiabetic drugs; Z79.899 Other long term (current) drug therapy
CPT/HCPCS: 76700; 80048; 80076; 82962; 83605; 83690; 84484; 85025; 99284

== ENCOUNTER 2024-05-08 11:46 | Emergency (ER) | payer MEDICARE, OTHER ==
[~2024-05-08] VITALS: Ht 153 cm; Wt 80.9 kg
[~2024-05-08 11:46] MED LIST changes: -AMLO-257 PO; -CHOL25TA4 PO; +METO-325 PO; -METO-391 PO; +ONDA-104 PO; -OXYB-34 PO; +POLY119P3 PO; +VIBE75TA PO
[2024-05-08 11:50] VITALS: TEMP 97.7
[2024-05-08] MEDS: ACETAMINOPHEN 325 MG TABLET PO ONE (13:53)
[2024-05-08] MEDS: SODIUM CHLORIDE 0.9% 1,000 ML IV ONE (13:53)
[2024-05-08] MEDS: METOCLOPRAMIDE HCL 5 MG/ML 2 ML VIAL IVP ONE (13:54)
[2024-05-08] MEDS: DiphenhydrAMINE HCL 50 MG/ML VIAL IVP ONE (13:54)
[2024-05-08] MEDS: HALOPERIDOL LACTATE 5 MG/ML VIAL IVP ONE (14:24)
[2024-05-08 14:46] LABS: BASOPHILS % (AUTO) 0.7 % (0.0-2.0); EOSINOPHILS % (AUTO) 0.2 % (1.0-6.0); HEMATOCRIT 39.8 % (36-46); HEMOGLOBIN 13.1 g/dL (12.0-16.0); LYMPHOCYTES # (AUTO) 0.8 K/uL (1.0-4.8); LYMPHOCYTES % (AUTO) 25.1 % (22.0-44.0); MEAN CORPUSCULAR HEMOGLOBIN 29.9 pg (26.0-34.0); MEAN CORPUSCULAR VOLUME 91 fL (80-100); MONOCYTES # (AUTO) 0.7 K/uL (0.1-1.0); NEUTROPHILS # (AUTO) 1.8 K/uL (1.8-7.7); PLATELET COUNT (AUTO) 236 K/uL (150-450); RED BLOOD CELL COUNT(AUTO) 4.39 MIL/uL (4.00-5.20); RED CELL DISTRIBUTION WIDTH 12.9 % (11.5-14.5); WHITE BLOOD COUNT (AUTO) 3.3 K/uL (4.5-11.0)
[2024-05-08 14:55] LABS: ANION GAP 7 mmol/L (8-16); CALCIUM, TOTAL 7.8 mg/dL (8.8-10.5); CARBON DIOXIDE 31 mmol/L (22-29); CHLORIDE 100 mmol/L (98-107); CREATININE 0.57 mg/dL (0.60-1.30); GLOMERULAR FILTR. RATE CALC > 60 mL/min (>60); GLUCOSE,RANDOM 99 mg/dL (70-110); POTASSIUM 3.1 mmol/L (3.5-5.1); SODIUM SERUM 138 mmol/L (136-145); UREA NITROGEN, BLOOD 6 mg/dL (7-18)
[2024-05-08 15:03] LABS: COVID AG,FIA SOURCE NASAL SWAB
[2024-05-08] MEDS: MORPHINE SULFATE 2 MG/ML SYRINGE IVP ONE (15:03)
[2024-05-08 15:11] LABS: RBC MORPHOLOGY COMMENT NORMAL RBC MORPH
[2024-05-08 15:24] LABS: INFLUENZA TYPE A NEGATIVE FOR TYPE A (NEGATIVE); INFLUENZA TYPE B NEGATIVE FOR TYPE B (NEGATIVE); SARS-COV2 (COVID) ANTIGEN,FIA Negative (Negative)
[2024-05-08 16:00] VITALS: BP 155/73; PULSE 84; RESP 17; O2SAT 95
== END 2024-05-08 18:39 | disposition home or self-care (01) ==
LOC: EMS 11:48
DX: G43.909 Migraine, unspecified, not intractable, without status migrainosus (principal); E11.9 Type 2 diabetes mellitus without complications; E78.00 Pure hypercholesterolemia, unspecified; I10 Essential (primary) hypertension; J45.909 Unspecified asthma, uncomplicated; K21.9 Gastro-esophageal reflux disease without esophagitis; Z87.891 Personal history of nicotine dependence; Z79.85 Long-term (current) use of injectable non-insulin antidiabetic drugs; Z20.822 Contact with and (suspected) exposure to COVID-19
CPT/HCPCS: 99285; 96374; 96361; 96375; 70450; 87426; 80048; 85025; 87804; 36415; J1200; J1630; J2765; J2270; J7030

== ENCOUNTER 2024-08-31 21:15 | Inpatient (IN) | payer MEDICARE, OTHER ==
[~2024-08-31] VITALS: Ht 149.9 cm; Wt 76.4 kg
[~2024-08-31 21:15] MED LIST changes: +AMLO-257 PO
[2024-08-31 21:22] VITALS: TEMP 97.5
[2024-08-31 21:51] LABS: GLUCOMETER DEV NAME(LOC) AHU.; GLUCOSE,POINT OF CARE 141 MG/DL (70-110)
[2024-09-01 00:30] LABS: BASOPHILS % (AUTO) 0.5 % (0.0-2.0); EOSINOPHILS % (AUTO) 1.1 % (1.0-6.0); HEMATOCRIT 40.7 % (36-46); HEMOGLOBIN 13.6 g/dL (12.0-16.0); LYMPHOCYTES # (AUTO) 2.2 K/uL (1.0-4.8); LYMPHOCYTES % (AUTO) 32.5 % (22.0-44.0); MEAN CORPUSCULAR HEMOGLOBIN 30.2 pg (26.0-34.0); MEAN CORPUSCULAR HGB CONC 33.4 G/dL (31.0-37.0); MEAN CORPUSCULAR VOLUME 90 fL (80-100); MONOCYTES # (AUTO) 0.7 K/uL (0.1-1.0); MONOCYTES % (AUTO) 10.4 % (2.0-9.0); NEUTROPHILS # (AUTO) 3.8 K/uL (1.8-7.7); NEUTROPHILS % (AUTO) 55.5 % (40.0-70.0); PLATELET COUNT (AUTO) 281 K/uL (150-450); RED CELL DISTRIBUTION WIDTH 13.2 % (11.5-14.5); WHITE BLOOD COUNT (AUTO) 6.8 K/uL (4.5-11.0)
[2024-09-01 00:40] LABS: ANION GAP 3 mmol/L (8-16); CALCIUM, TOTAL 9.2 mg/dL (8.8-10.5); CARBON DIOXIDE 34 mmol/L (22-29); CHLORIDE 107 mmol/L (98-107); CREATININE 0.91 mg/dL (0.60-1.30); GLOMERULAR FILTR. RATE CALC 60 mL/min (>60); GLUCOSE,RANDOM 104 mg/dL (70-110); POTASSIUM 3.8 mmol/L (3.5-5.1); SODIUM SERUM 144 mmol/L (136-145); UREA NITROGEN, BLOOD 24 mg/dL (7-18)
[2024-09-01 00:46] LABS: ALBUMIN 3.6 g/dL (3.4-5.0); BILIRUBIN,DIRECT 0.1 mg/dL (0.00-0.20); BILIRUBIN,TOTAL 0.4 mg/dL (0.1-1.0); TOTAL PROTEIN, SERUM 7.6 g/dL (6.4-8.2)
[2024-09-01 00:49] LABS: TROPONIN I-HIGH SENSITIVITY Less Than 4 ng/L (<51)
[2024-09-01 01:12] LABS: APPEARANCE,URINE HAZY (CLEAR); BILIRUBIN,URINE NEGATIVE (NEGATIVE); COLOR,URINE YELLOW (YELLOW); GLUCOSE, URINE (UA) NEGATIVE (NEGATIVE); KETONES,URINE NEGATIVE (NEGATIVE); LEUKOCYTE ESTERASE ,URINE LARGE (NEGATIVE); NITRATE,URINE NEGATIVE (NEGATIVE); OCCULT BLOOD,URINE NEGATIVE (NEGATIVE); PH,URINE 5.5 (5.0-8.0); PROTEIN,URINE 30-70 mg/dL (NEGATIVE); SPECIFIC GRAVITIY, URINE 1.032 (1.003-1.030)
[2024-09-01 01:30] LABS: AMORPHOUS SEDIMENT,UR Moderate /LPF (None Seen); BACTERIA,URINE Few /HPF (None Seen); COARSE GRANULAR CASTS,URINE 0-2 /LPF (None Seen); FINE GRANULAR CASTS,URINE 0-2 /LPF (None Seen); RBC,URINE None Seen /HPF (0-2); SQUAMOUS EPITHELIAL CELL,UR Few /LPF (None Seen)
[2024-09-01] MEDS: CefTRIAXone 1 GM/DEXTROSE 50 ML IV ONE (02:33)
[2024-09-01] MEDS ORDERED: RINGERS SOLUTION,LACTATED 1,000 ML IV ONE (05:45)
[2024-09-01] MEDS ORDERED: ACETAMINOPHEN 325 MG TABLET PO PRN (05:45)
[2024-09-01] MEDS ORDERED: ONDANSETRON HCL 4 MG/2 ML VIAL IVP PRN (05:45)
[2024-09-01 06:23] VITALS: BP 140/78; PULSE 69; RESP 15; O2SAT 100
[2024-09-01] MEDS ORDERED: HEPARIN SODIUM,PORCINE 5,000 UNITS/ML VIAL SQ SCH (08:00)
[2024-09-01] MEDS ORDERED: DOCUSATE SODIUM 100 MG CAPSULE PO SCH (09:00)
== END 2024-09-01 06:24 | disposition left against medical advice (07) | DRG 315 ==
LOC: EMS 21:15 → EDH 09-01 05:36
PROVIDERS: ADMIT Internal Medicine; ATTEND Internal Medicine
DX: I95.9 Hypotension, unspecified (principal); E87.3 Alkalosis; R79.89 Other specified abnormal findings of blood chemistry; E11.9 Type 2 diabetes mellitus without complications; E78.00 Pure hypercholesterolemia, unspecified; K59.00 Constipation, unspecified; S00.01XA Abrasion of scalp, initial encounter; K21.9 Gastro-esophageal reflux disease without esophagitis; I10 Essential (primary) hypertension; J45.909 Unspecified asthma, uncomplicated; Z82.49 Family history of ischemic heart disease and other diseases of the circulatory system; Z82.5 Family history of asthma and other chronic lower respiratory diseases; Z87.891 Personal history of nicotine dependence; Z95.5 Presence of coronary angioplasty implant and graft; W01.0XXA Fall on same level from slipping, tripping and stumbling without subsequent striking against object, initial encounter; Y93.89 Activity, other specified; Y92.89 Other specified places as the place of occurrence of the external cause; Y99.8 Other external cause status; Z53.29 Procedure and treatment not carried out because of patient's decision for other reasons; R55 Syncope and collapse
CPT/HCPCS: 70450; 71045; 72125; 73503; 80048; 80076; 81001; 82550; 82962; 83880; 84484; 85025; 87086; 93005; 99285; G0378; J0696; 36415-L1; 36415-TC

== ENCOUNTER 2024-09-08 09:08 | Day surgery (SDC) | payer MEDICARE, OTHER ==
[~2024-09-08] VITALS: Ht 149.9 cm; Wt 76.4 kg
[2024-09-08] VITALS (9 sets, daily range): BP systolic 121–185; BP diastolic 49–81; PULSE 60–95
[~2024-09-08 09:08] MED LIST changes: -ONDA-104 PO; -POLY119P3 PO; -VIBE75TA PO
[2024-09-08] MEDS ORDERED: SODIUM CHLORIDE 0.9% 1,000 ML ONE (09:36)
[2024-09-08 09:44] LABS: BASOPHILS % (AUTO) 0.6 % (0.0-2.0); EOSINOPHILS % (AUTO) 3.1 % (1.0-6.0); HEMOGLOBIN 13.7 g/dL (12.0-16.0); LYMPHOCYTES # (AUTO) 1.7 K/uL (1.0-4.8); LYMPHOCYTES % (AUTO) 33.5 % (22.0-44.0); MEAN CORPUSCULAR HEMOGLOBIN 30.1 pg (26.0-34.0); MEAN CORPUSCULAR HGB CONC 33.3 G/dL (31.0-37.0); MEAN CORPUSCULAR VOLUME 90 fL (80-100); MONOCYTES # (AUTO) 0.7 K/uL (0.1-1.0); MONOCYTES % (AUTO) 12.7 % (2.0-9.0); NEUTROPHILS # (AUTO) 2.6 K/uL (1.8-7.7); NEUTROPHILS % (AUTO) 50.1 % (40.0-70.0); PLATELET COUNT (AUTO) 249 K/uL (150-450); RED BLOOD CELL COUNT(AUTO) 4.54 MIL/uL (4.00-5.20); RED CELL DISTRIBUTION WIDTH 12.9 % (11.5-14.5); WHITE BLOOD COUNT (AUTO) 5.2 K/uL (4.5-11.0)
[2024-09-08 09:55] LABS: ANION GAP 7 mmol/L (8-16); CALCIUM, TOTAL 8.5 mg/dL (8.8-10.5); CARBON DIOXIDE 33 mmol/L (22-29); CHLORIDE 101 mmol/L (98-107); CREATININE 0.62 mg/dL (0.60-1.30); GLOMERULAR FILTR. RATE CALC > 60 mL/min (>60); GLUCOSE,RANDOM 100 mg/dL (70-110); POTASSIUM 3.2 mmol/L (3.5-5.1); SODIUM SERUM 141 mmol/L (136-145); UREA NITROGEN, BLOOD 11 mg/dL (7-18)
[2024-09-08 09:57] LABS: PROTHROMBIN TIME 10.4 SEC (9.4-11.6)
[2024-09-08] MEDS: SODIUM CHLORIDE 0.9% 1,000 ML IV ONE (10:08)
[2024-09-08] MEDS ORDERED: AMLO5TAB66 PO (10:12)
[2024-09-08] MEDS ORDERED: VERAPAMIL HCL 2.5 MG/ML 2 ML VIAL ONE (11:37)
[2024-09-08] MEDS ORDERED: HEPARIN SODIUM 1000 UNITS/NS 1,000 ML ONE (11:38)
[2024-09-08] MEDS ORDERED: LIDOCAINE/PF 1% 30 ML VIAL ONE (11:38)
[2024-09-08] MEDS ORDERED: IOHEXOL 300 MG/ML 100 ML VIAL ONE (11:38)
[2024-09-08] MEDS ORDERED: SODIUM BICARBONATE 50 MEQ/50 ML VIAL ONE (11:38)
[2024-09-08] MEDS ORDERED: NITROGLYCERIN 50 MG/D5% WATER 250 ML ONE (11:39)
[2024-09-08] MEDS ORDERED: FentaNYL CITRATE PF 100 MCG/2 ML VIAL ONE (12:18)
[2024-09-08] MEDS ORDERED: MIDAZOLAM HCL 2 MG/2 ML VIAL ONE (12:18)
[2024-09-08] MEDS ORDERED: KETO15CR2 TP (12:40)
[2024-09-08] MEDS ORDERED: OXYB10TA42 PO (12:40)
[2024-09-08] MEDS ORDERED: ESTR42.510 VG (12:40)
[2024-09-08] MEDS: VERAPAMIL HCL 2.5 MG/ML 2 ML VIAL ICOR ONE (12:44)
[2024-09-08] MEDS: HEPARIN SODIUM,PORCINE 1,000 UNITS/ML 10 ML VIAL ICOR ONE (12:44)
[2024-09-08] MEDS: IOHEXOL 300 MG/ML 100 ML VIAL IARTER ONE (12:44)
[2024-09-08] MEDS: LIDOCAINE 1% 30 ML/SOD BICARB 8.4% 4 ML SQ ONE (12:44)
[2024-09-08] MEDS: MIDAZOLAM HCL 2 MG/2 ML VIAL IVP ONE (12:45)
[2024-09-08] MEDS: NITROGLYCERIN/D5W 50 MG/250 ML IV BOTTLE IARTER ONE (12:45)
[2024-09-08] MEDS: FentaNYL CITRATE PF 100 MCG/2 ML VIAL IVP ONE ×2 (12:46→12:47)
[2024-09-08] MEDS: HEPARIN SODIUM 1000 UNITS/NS 1,000 ML IARTER ONE (12:47)
== END 2024-09-08 15:35 | disposition home or self-care (01) ==
LOC: CATHLAB 09:08
PROVIDERS: ATTEND Internal Medicine Cardiovascular Disease
DX: I25.10 Atherosclerotic heart disease of native coronary artery without angina pectoris (principal); Z79.01 Long term (current) use of anticoagulants; E11.9 Type 2 diabetes mellitus without complications; I10 Essential (primary) hypertension; E78.5 Hyperlipidemia, unspecified; Z79.899 Other long term (current) drug therapy
CPT/HCPCS: 93458; 80048; 85025; 85610; 85730; 36415; 93005; J3010; J1644; J3490 ×4; J2250; J7030; Q9967

== ENCOUNTER 2024-10-14 10:19 | Emergency (ER) | payer MEDICARE, OTHER ==
[~2024-10-14] VITALS: Ht 149.9 cm; Wt 76.4 kg
[~2024-10-14 10:19] MED LIST changes: +ESTR42.510 VG; +KETO15CR2 TP; +OXYB10TA42 PO
[2024-10-14 10:22] VITALS: TEMP 97.9
[2024-10-14 10:46] LABS: GLUCOMETER DEV NAME(LOC) ER.7; GLUCOSE,POINT OF CARE 94 MG/DL (70-110)
[2024-10-14 10:46] LABS: BASOPHILS % (AUTO) 0.8 % (0.0-2.0); EOSINOPHILS % (AUTO) 2.6 % (1.0-6.0); HEMATOCRIT 41.9 % (36-46); HEMOGLOBIN 13.9 g/dL (12.0-16.0); LYMPHOCYTES % (AUTO) 39.2 % (22.0-44.0); MEAN CORPUSCULAR HEMOGLOBIN 30.2 pg (26.0-34.0); MEAN CORPUSCULAR VOLUME 91 fL (80-100); MONOCYTES # (AUTO) 0.4 K/uL (0.1-1.0); MONOCYTES % (AUTO) 7.9 % (2.0-9.0); NEUTROPHILS # (AUTO) 2.6 K/uL (1.8-7.7); NEUTROPHILS % (AUTO) 49.5 % (40.0-70.0); PLATELET COUNT (AUTO) 279 K/uL (150-450); RED BLOOD CELL COUNT(AUTO) 4.59 MIL/uL (4.00-5.20); RED CELL DISTRIBUTION WIDTH 13.1 % (11.5-14.5); WHITE BLOOD COUNT (AUTO) 5.2 K/uL (4.5-11.0)
[2024-10-14 10:56] LABS: ANION GAP 3 mmol/L (8-16); CALCIUM, TOTAL 8.8 mg/dL (8.8-10.5); CARBON DIOXIDE 33 mmol/L (22-29); CHLORIDE 104 mmol/L (98-107); CREATININE 0.66 mg/dL (0.60-1.30); GLOMERULAR FILTR. RATE CALC > 60 mL/min (>60); GLUCOSE,RANDOM 93 mg/dL (70-110); POTASSIUM 4.1 mmol/L (3.5-5.1); SODIUM SERUM 140 mmol/L (136-145); UREA NITROGEN, BLOOD 9 mg/dL (7-18)
[2024-10-14 11:08] LABS: TROPONIN I-HIGH SENSITIVITY 4 ng/L (<51)
[2024-10-14 12:31] VITALS: BP 137/82; PULSE 80; RESP 16; O2SAT 99
[2024-10-14 12:35] LABS: APPEARANCE,URINE CLEAR (CLEAR); BILIRUBIN,URINE NEGATIVE (NEGATIVE); COLOR,URINE COLORLESS (YELLOW); GLUCOSE, URINE (UA) NEGATIVE (NEGATIVE); KETONES,URINE NEGATIVE (NEGATIVE); LEUKOCYTE ESTERASE ,URINE LARGE (NEGATIVE); NITRATE,URINE NEGATIVE (NEGATIVE); OCCULT BLOOD,URINE NEGATIVE (NEGATIVE); PROTEIN,URINE NEGATIVE (NEGATIVE); SPECIFIC GRAVITIY, URINE 1.009 (1.003-1.030); UROBILINOGEN,URINE <=1.0 mg/dL (<=1.0)
[2024-10-14 13:06] LABS: BACTERIA,URINE Few /HPF (None Seen); RBC,URINE None Seen /HPF (0-2); SQUAMOUS EPITHELIAL CELL,UR Few /LPF (None Seen)
== END 2024-10-14 14:20 | disposition home or self-care (01) ==
LOC: EMS 10:47
DX: K59.00 Constipation, unspecified (principal); I10 Essential (primary) hypertension; E11.9 Type 2 diabetes mellitus without complications; J45.909 Unspecified asthma, uncomplicated; E78.00 Pure hypercholesterolemia, unspecified; Z79.82 Long term (current) use of aspirin; Z79.84 Long term (current) use of oral hypoglycemic drugs; Z79.899 Other long term (current) drug therapy
CPT/HCPCS: 80048; 81001; 82962; 83690; 84484; 85025; 99283

== ENCOUNTER → 2025-01-23 | Outpatient (CLI) | payer MEDICARE, OTHER ==
[~2025-01-23] VITALS: Ht 144.8 cm; Wt 75.6 kg
[~2025-01-23] MED LIST changes: +LOSA-382 PO
[2025-01-23 10:08] VITALS: BP 165/86; PULSE 68; RESP 16; TEMP 97.6; O2SAT 99
== END | disposition home or self-care (01) ==
LOC: SRCNTR 10:06
PROVIDERS: ATTEND Internal Medicine Cardiovascular Disease
DX: I25.10 Atherosclerotic heart disease of native coronary artery without angina pectoris (principal); E11.9 Type 2 diabetes mellitus without complications; E78.5 Hyperlipidemia, unspecified; I10 Essential (primary) hypertension; R32 Unspecified urinary incontinence; Z79.82 Long term (current) use of aspirin; Z79.84 Long term (current) use of oral hypoglycemic drugs; Z79.85 Long-term (current) use of injectable non-insulin antidiabetic drugs; Z79.899 Other long term (current) drug therapy
CPT/HCPCS: G0463